=== PATIENT | female | born 1990 | race Caucasian/White ===

== ENCOUNTER 2017-12-05 22:41 | Emergency (ER) | payer MEDICAID ==
[~2017-12-05] VITALS: Ht 165.1 cm; Wt 93.2 kg
[~2017-12-05 22:41] MED LIST: ALBU8.5H8 INH; NORG1TAB56 PO
[2017-12-05] MEDS ORDERED: LIDOcaine 1% 30ml preserv. free vial IJ ONE (23:00)
[2017-12-05] MEDS ORDERED: TETanus/Pertussis (Acell)/Diphther VAC/PF (Tdap-Adult) 0.5ml syringe IMVAC ONE (23:00)
[2017-12-06 00:37] VITALS: BP 141/53
== END 2017-12-06 00:38 | disposition home or self-care (01) ==
LOC: ER 22:42
DX: S61.412A Laceration without foreign body of left hand, initial encounter (principal); F15.90 Other stimulant use, unspecified, uncomplicated; F11.90 Opioid use, unspecified, uncomplicated; Z91.030 Bee allergy status; Z59.0 Homelessness; Z56.0 Unemployment, unspecified; W25.XXXA Contact with sharp glass, initial encounter; Y93.89 Activity, other specified; Y92.89 Other specified places as the place of occurrence of the external cause; Y99.8 Other external cause status
CPT/HCPCS: 12001; 90471; 90715; 99283; A6449; J3490

== ENCOUNTER 2018-07-30 07:04 | Emergency (ER) | payer MEDICAID ==
[~2018-07-30] VITALS: Ht 170.2 cm; Wt 72.0 kg
[2018-07-30] MEDS ORDERED: OLANZapine **IM** 10 mg inj. IM ONE (07:40)
[2018-07-30] MEDS ORDERED: LORazepam 2 mg/ml vial IM ONE (07:40)
--- NOTE | 2018-07-30 07:56 | NUR ---
pt was seen and assessed by Dr Calix, pt was agitated and unsafe. poor decision making skills, delusional thoughts. Dr Calix ordered ativan and zyprexa IM, administered. will continue to monitor.
[2018-07-30 08:57] LABS: BASOPHILS % (AUTO) 0.4 % (0-1); EOSINOPHILS # (AUTO) 0.2 X10'3 (0-0.9); EOSINOPHILS % (AUTO) 1.4 % (0-6); HEMATOCRIT 41.1 % (35.0-45.0); HEMOGLOBIN 14.1 g/dl (12.0-16.0); LYMPHOCYTES # (AUTO) 2.7 X10'3 (1.1-4.8); LYMPHOCYTES % (AUTO) 23.4 % (21-51); MEAN CORPUSCULAR HEMOGLOBIN 31.8 PG (27.0-31.0); MEAN CORPUSCULAR HGB CONC 34.4 g/dL (33.0-36.5); MEAN CORPUSCULAR VOLUME 92.4 FL (78-98); MEAN PLATELET VOLUME 9.7 FL (7.4-10.4); MONOCYTES # (AUTO) 0.9 X10'3 (0-0.9); MONOCYTES % (AUTO) 7.8 % (2-12); NEUTROPHILS # (AUTO) 7.9 X10'3 (1.8-7.7); PLATELET COUNT 238 X10'3 (140-440); RED BLOOD COUNT 4.45 X10'6 (4.20-5.60); RED CELL DISTRIBUTION WIDTH 13.1 % (11.5-14.5); WHITE BLOOD COUNT 11.7 X10'3 (4.5-11.0)
--- NOTE | 2018-07-30 09:00 | NUR ---
Received pt from triage at 0845. Pt got right into bed and fell to sleep. Pt does not respond to attempt at assessment as pt is sedated and sleeping with out complaints.
[2018-07-30 09:07] LABS: ALANINE AMINOTRANSFERASE 29 U/L (12-78); ALBUMIN 3.7 G/DL (3.4-5.0); ALKALINE PHOSPHATASE 70 IU/L (46-116); ANION GAP 10 (8-16); ASPARTATE AMINO TRANSFERASE 18 U/L (10-37); BILIRUBIN,TOTAL 0.3 MG/DL (0.1-1.0); BLOOD UREA NITROGEN 8 MG/DL (7-18); BUN/CREATININE RATIO 11.8 (6.6-38.0); CALCIUM 9.3 MG/DL (8.5-10.1); CHLORIDE 103 MMOL/L (99-107); CREATININE 0.68 MG/DL (0.40-0.90); GLUCOSE 117 MG/DL (70-104); POTASSIUM 3.9 MMOL/L (3.5-5.1); SODIUM 142 MMOL/L (135-145); TOTAL CARBON DIOXIDE 28.8 MMOL/L (24-32); TOTAL PROTEIN 7.4 G/DL (6.4-8.2); eGFR > 90 ML/MIN
[2018-07-30 09:18] LABS: ETHANOL < 0.010 GM/DL (0.0-0.010)
--- NOTE | 2018-07-30 11:00 | NUR ---
MD over to assess pt. MD attempting to get pt out of bed to pee in a cup for urine tox screen. Pt sedated and did not awake. MD took sheets off pt and shook pt. Pt sedated and resisting, preferring to stay in the bed. MD pulled pt out of the bed with pt struggling to remain in the bed. Other staff assisting MD at this point able to help pt walk toward bathroom, but never made it and returned to the bed. Pt appears scared and became resistive to lying down in bed. At one point, pt stood on bed and security eventually able to talk pt into sitting on her bed which she did for awhile before lying back down.
--- NOTE | 2018-07-30 13:00 | NUR ---
Pt remains asleep in bed. Pt had refused v/s which were ordered q-1 hour to r/o sepsis. Pt agreeable at 1230. Will recheck at 1330.
--- NOTE | 2018-07-30 15:00 | NUR ---
Pt remains sleeping in bed without complaints. Pt compliant with q 1 hour vital signs and MD changed back to routine.
--- NOTE | 2018-07-30 17:00 | NUR ---
Pt continues to sleep in bed without complaints. Attempts to wake her to assess her have been unsuccessful.
--- NOTE | 2018-07-30 17:39 | NUR ---
Mom's Phone # Pts mom called unit to give info. Pt's father suicided in late 90's and [employer] in family. Pt can call Mom. Mom will call later. Mom's # [phone].
--- NOTE | 2018-07-30 20:02 | NUR ---
PT'S MOTHER CALLED TO GIVE UP DATED INFORMATION. PER MOTHER PT TALKED TO OFFICER BRI AND CASE NUMBER IS [id number]. MD DEAN AT BEDSIDE TO EVALUATE PT, SHE IS MEDICALLY CLEARED AT THIS TIME AND WE WILL COLLECT A UA.
--- NOTE | 2018-07-30 20:42 | NUR ---
PT irritated and yelling into pillow. This clinical writer begins speaking with patient, instructs pt to breath slowly to lower her voice. PT mood improved slightly. PT asks politely for some milk and lip balm. PT continues to slowly de-escalate.
--- NOTE | 2018-07-30 21:00 | NUR ---
TELE-PSYCH ON HOLD AT THIS TIME DUE TO PATIENT BEGIN AGGITATED. PT SLOWLY CALMING DOWN WITH HELP FROM SITTER.
[2018-07-30 21:56] LABS: BASOPHILS % (AUTO) 0.4 % (0-1); EOSINOPHILS # (AUTO) 0.3 X10'3 (0-0.9); EOSINOPHILS % (AUTO) 2.9 % (0-6); HEMATOCRIT 38.5 % (35.0-45.0); HEMOGLOBIN 13.1 g/dl (12.0-16.0); LYMPHOCYTES # (AUTO) 4.1 X10'3 (1.1-4.8); LYMPHOCYTES % (AUTO) 41.3 % (21-51); MEAN CORPUSCULAR HEMOGLOBIN 31.5 PG (27.0-31.0); MEAN CORPUSCULAR HGB CONC 33.9 g/dL (33.0-36.5); MEAN CORPUSCULAR VOLUME 92.7 FL (78-98); MEAN PLATELET VOLUME 9.2 FL (7.4-10.4); MONOCYTES # (AUTO) 0.8 X10'3 (0-0.9); MONOCYTES % (AUTO) 8.6 % (2-12); NEUTROPHILS # (AUTO) 4.6 X10'3 (1.8-7.7); NEUTROPHILS % (AUTO) 46.8 % (42-75); PLATELET COUNT 241 X10'3 (140-440); RED BLOOD COUNT 4.16 X10'6 (4.20-5.60); RED CELL DISTRIBUTION WIDTH 13.3 % (11.5-14.5); WHITE BLOOD COUNT 9.9 X10'3 (4.5-11.0)
[2018-07-30 22:37] LABS: URINE HCG NEGATIVE (NEG)
[2018-07-30 22:40] LABS: CLARITY,URINE CLOUDY (Clear); COLOR,URINE YELLOW (Yellow); GLUCOSE, URINE NEGATIVE (Neg); KETONES,URINE TRACE mg/dl (Neg); LEUKOCYTE ESTERASE ,URINE MODERATE (Neg); NITRITES, URINE POSITIVE (Neg); OCCULT BLOOD,URINE SMALL (Neg); PROTEIN,URINE TRACE mg/dl (Neg); UROBILINOGEN,URINE 0.2 E.U/dL (0.2-1.0)
[2018-07-30 22:45] LABS: UA COLLECTION TYPE NON-SPECIFIED
--- NOTE | 2018-07-30 22:45 | NUR ---
DR TOM TELE-PSYCH IS CONSULTING WITH THE PATIENT RIGHT NOW. URINE WAS OBTAINED AND SENT TO LAB.
[2018-07-30 22:46] LABS: WBC,URINE 30-50 /HPF (0-4)
[2018-07-30 22:47] LABS: BACTERIA,URINE 1+ /HPF (Neg); SQUAMOUS EPITHELIAL CELL,UR FEW /LPF (FEW); URINE AMPHETAMINE SCREEN POSITIVE (Neg); URINE BARBITUATE SCREEN NEGATIVE (Neg); URINE BENZODIAZEPINES SCREEN NEGATIVE (Neg); URINE CANNABINOID SCREEN POSITIVE (Neg); URINE COCAINE SCREEN NEGATIVE (Neg); URINE METHADONE SCREEN NEGATIVE (Neg); URINE OPIATE SCREEN NEGATIVE (Neg); URINE PHENCYCLIDINE SCREEN NEGATIVE (Neg); WBC CLUMPS,URINE FEW /HPF (NEGATIVE)
--- NOTE | 2018-07-30 22:47 | NUR ---
PT APPEARS TO HAVE UTI ON U/A RESULTS. DES AWARE AND WILL ORDER MEDICATIONS FOR HER.
[2018-07-30] MEDS: ziprasidone 20mg capsule PO SCH (23:10)
[2018-07-30] MEDS ORDERED: ZIPR20CA2 PO (23:53)
[2018-07-30] MEDS ORDERED: GEO20I IM (23:53)
--- NOTE | 2018-07-31 00:15 | NUR ---
Packet faxed to [facility].
[2018-07-31] MEDS ORDERED: ziprasidone 20mg capsule PO PRN (00:20)
--- NOTE | 2018-07-31 02:10 | NUR ---
PT RESTING ON R SIDE, RESPIRATIONS EVEN, UNLABORED.
[2018-07-31] MEDS ORDERED: albuterol 2.5 MG/3 ML nebule NEB PRN (04:00)
--- NOTE | 2018-07-31 06:42 | NUR ---
Pt sleeping at this time.
[2018-07-31] MEDS: sulfamethoxazole/trimethoprim DS (800/160mg) tablet PO SCH ×2 (07:58→20:00)
[2018-07-31] MEDS: ziprasidone 20mg capsule PO SCH ×3 (07:58→20:15)
[2018-07-31] MEDS ORDERED: cephalexin 500mg capsule PO SCH (08:00)
[2018-07-31] MEDS ORDERED: ziprasidone 20mg capsule PO SCH ×2 (08:00→22:55)
[2018-07-31] MEDS: NORGESTIMATE ETHINYL ESTRADIOL PO SCH (08:00)
--- NOTE | 2018-07-31 08:30 | NUR ---
Woke up to eat brteakfast.
--- NOTE | 2018-07-31 14:00 | NUR ---
Pt has woken up to eat lunch and to talk with [facility].
--- NOTE | 2018-07-31 19:29 | NUR ---
Recieved report from Purvi APARICIO. PT resting quietly at beginning of shift. PT received and ate dinner. Ana addressed.
--- NOTE | 2018-07-31 20:30 | NUR ---
Pt cooperative with medication administration. C/O painful Left great toe r/t in grown toenail. Tape used to pull skin back from nail to relieve pressure. Pt stated toe felt better after taping.
--- NOTE | 2018-07-31 21:30 | NUR ---
Pt resting comfortably on her right side. Respirations even and unlabored
--- NOTE | 2018-07-31 22:54 | NUR ---
Pt continues to rest quietly. Pt has pillow over her head.
--- NOTE | 2018-08-01 06:20 | NUR ---
Pt resting quietly.
[2018-08-01] MEDS: NORGESTIMATE ETHINYL ESTRADIOL PO SCH (08:00)
[2018-08-01] MEDS: sulfamethoxazole/trimethoprim DS (800/160mg) tablet PO SCH (08:23)
[2018-08-01] MEDS: ziprasidone 20mg capsule PO SCH (08:26)
--- NOTE | 2018-08-01 11:24 | NUR ---
[facility] called to get nurse to nurse on pt.
--- NOTE | 2018-08-01 13:16 | NUR ---
Talking on phone with mom. Pt much more talkative today.
[2018-08-01] MEDS ORDERED: diphenhydrAMINE 25mg capsule PO ONE (13:55)
[2018-08-01] MEDS ORDERED: nicotine 14mg patch - 24hr TD ONE (13:55)
--- NOTE | 2018-08-01 15:40 | NUR ---
Pt has been accepted at [facility] under the care of Dr Mercado. Waiting on [facility] to arrange transportation.
--- NOTE | 2018-08-01 15:41 | NUR ---
Spoke to Angelica at [facility]'s office. She will call when she has a pharmacy picking tech time.
[2018-08-01 16:39] VITALS: BP 110/54
[2018-08-01] MEDS ORDERED: lactobacillus rhamnosus 10,000 MMU CELLS/CAPSULE PO SCH (20:00)
== END 2018-08-01 16:41 ==
LOC: ER 07:05
DX: F29 Unspecified psychosis not due to a substance or known physiological condition (principal); F31.9 Bipolar disorder, unspecified; F11.90 Opioid use, unspecified, uncomplicated; F15.90 Other stimulant use, unspecified, uncomplicated; Z91.030 Bee allergy status; Z79.899 Other long term (current) drug therapy; Z56.0 Unemployment, unspecified; Z59.0 Homelessness
CPT/HCPCS: 36415; 80053; 80305; 80320; 81001; 81025; 84443; 85025; 87491; 87591; 96372; 99285; J2060; Q0163

== ENCOUNTER 2018-11-17 17:12 | Emergency (ER) | payer MEDICAID ==
[~2018-11-17 17:12] MED LIST changes: -ALBU8.5H8 INH; +BENZ1TAB7 PO; +HALO5TAB PO; +HYDR-3686 PO; +NICO-687 TOP; -NORG1TAB56 PO; +PRAZ2CAP2 PO
== END 2018-11-17 17:53 | disposition left against medical advice (07) ==
LOC: ER 17:13
DX: Z00.8 Encounter for other general examination (principal); Z53.21 Procedure and treatment not carried out due to patient leaving prior to being seen by health care provider; Z91.030 Bee allergy status; Z79.899 Other long term (current) drug therapy

== ENCOUNTER 2018-12-04 13:44 | Emergency (ER) | payer MEDICAID ==
[~2018-12-04] VITALS: Ht 167.6 cm; Wt 68.2 kg
[2018-12-04] MEDS ORDERED: LORazepam 2 mg/ml vial IM ONE (14:20)
[2018-12-04] MEDS ORDERED: haloperidol lactate 5mg/ml inj IM ONE (14:20)
[2018-12-04 14:58] LABS: BASOPHILS # (AUTO) 0.1 X10'3 (0-0.2); BASOPHILS % (AUTO) 0.6 % (0-1); EOSINOPHILS # (AUTO) 0.1 X10'3 (0-0.9); EOSINOPHILS % (AUTO) 0.7 % (0-6); HEMATOCRIT 39.3 % (35.0-45.0); HEMOGLOBIN 13.2 g/dl (12.0-16.0); LYMPHOCYTES # (AUTO) 3.3 X10'3 (1.1-4.8); LYMPHOCYTES % (AUTO) 26.7 % (21-51); MEAN CORPUSCULAR HGB CONC 33.7 g/dL (33.0-36.5); MEAN PLATELET VOLUME 8.7 FL (7.4-10.4); MONOCYTES # (AUTO) 0.8 X10'3 (0-0.9); MONOCYTES % (AUTO) 6.6 % (2-12); NEUTROPHILS % (AUTO) 65.4 % (42-75); PLATELET COUNT 326 X10'3 (140-440); RED BLOOD COUNT 4.14 X10'6 (4.20-5.60); RED CELL DISTRIBUTION WIDTH 13.2 % (11.5-14.5); WHITE BLOOD COUNT 12.3 X10'3 (4.5-11.0)
[2018-12-04 15:10] LABS: ALANINE AMINOTRANSFERASE 18 U/L (12-78); ALBUMIN 3.2 G/DL (3.4-5.0); ALBUMIN/GLOBULIN RATIO 0.7 (1.1-1.5); ALKALINE PHOSPHATASE 62 IU/L (46-116); ANION GAP 6 (8-16); ASPARTATE AMINO TRANSFERASE 10 U/L (10-37); BILIRUBIN,TOTAL 0.3 MG/DL (0.1-1.0); BLOOD UREA NITROGEN 7 MG/DL (7-18); BUN/CREATININE RATIO 11.5 (6.6-38.0); CALCIUM 9.1 MG/DL (8.5-10.1); CHLORIDE 103 MMOL/L (99-107); CREATININE 0.61 MG/DL (0.40-0.90); GLUCOSE 97 MG/DL (70-104); POTASSIUM 4.5 MMOL/L (3.5-5.1); SODIUM 137 MMOL/L (135-145); TOTAL CARBON DIOXIDE 27.6 MMOL/L (24-32); TOTAL PROTEIN 7.5 G/DL (6.4-8.2); eGFR > 90 ML/MIN
[2018-12-04 15:12] LABS: ETHANOL < 0.010 GM/DL (0.0-0.010)
[2018-12-04 15:17] LABS: URINE HCG NEGATIVE (NEG)
[2018-12-04 15:19] LABS: CLARITY,URINE CLEAR (Clear); COLOR,URINE YELLOW (Yellow); GLUCOSE, URINE NEGATIVE (Neg); KETONES,URINE NEGATIVE (Neg); LEUKOCYTE ESTERASE ,URINE NEGATIVE (Neg); NITRITES, URINE NEGATIVE (Neg); OCCULT BLOOD,URINE NEGATIVE (Neg); PROTEIN,URINE NEGATIVE (Neg); UA COLLECTION TYPE CLN CATCH MIDSTREAM; UROBILINOGEN,URINE 0.2 E.U/dL (0.2-1.0)
[2018-12-04 15:34] LABS: URINE AMPHETAMINE SCREEN NEGATIVE (Neg); URINE BARBITUATE SCREEN NEGATIVE (Neg); URINE BENZODIAZEPINES SCREEN POSITIVE (Neg); URINE CANNABINOID SCREEN POSITIVE (Neg); URINE COCAINE SCREEN NEGATIVE (Neg); URINE METHADONE SCREEN NEGATIVE (Neg); URINE OPIATE SCREEN NEGATIVE (Neg); URINE PHENCYCLIDINE SCREEN NEGATIVE (Neg)
[2018-12-04] MEDS ORDERED: ARIP10TA15 PO (16:16)
--- NOTE | 2018-12-04 16:20 | NUR ---
AMBULATORY TO ER #20 WITH FAMILY IN ATTENDANCE. PATIENT HAS BEEN LIVING ON THE STREETS AND TAKING DRUGS. FAMILY CONCERNED FOR HER WELL-BEING, SO THEY BROUGHT HER IN FOR EVALUATION. PATIENT EASILY AGITATED BUT COOPERATIVE WITH DIRECTIVES. MOM AND BROTHERS AT THE BEDSIDE. PATIENT USED RESTROOM AND NOW RESTING IN BED. VSS. NO DISTRESS NOTED AT THIS TIME.
--- NOTE | 2018-12-04 19:00 | NUR ---
Pt is asleep at change of shift. Her respirations are WNL. Quality Compliance Consultant tries to rouse her for a 1:1 assessment, but she just turns over in bed and falls back asleep. vital signs WNL.
--- NOTE | 2018-12-04 21:00 | NUR ---
Pt is resting in bed on her back, no signs or symptoms of distress observed.
--- NOTE | 2018-12-05 00:54 | NUR ---
Pt woke up and went to the restroom, she requested a sandwhich, a juice, and a milk which she was given. PT drank all of her juice and milk and ate 75% of her sandwhich. She was given a warm blanket and then laid back down.
--- NOTE | 2018-12-05 01:00 | NUR ---
Pt asleep left side. RR 14, even and unlabored. No apparent distress @ this time.
[2018-12-05] MEDS ORDERED: acetaminophen 325mg tablet PO ONE (01:50)
[2018-12-05] MEDS ORDERED: LORazepam 1 MG tablet PO ONE ×2 (01:50→08:25)
--- NOTE | 2018-12-05 02:01 | NUR ---
Pt woke up and began screaming, "my tooth fucking hurts!" "What the fuck man do something" Engine Assembly Supervisor approaches patient and tries talking with her regarding her pain but she just continued screaming. 1mg PO ativan and 650 mg tylenol PO given and a warm compress. Pt quited down and immediately upon taking the medication. She was given a warm blanket and she closed her eyes.
--- NOTE | 2018-12-05 04:00 | NUR ---
Pt asleep on her back, RR 14, no signs or symptoms of distress at this time.
--- NOTE | 2018-12-05 06:35 | NUR ---
RECEIVED REPORT FROM TRUMAN AND ASSUMED CARE, PATIENT IS SLEEPING, RESPIRATIONS SPONTANEOUS, EVEN AND UNLABORED, NO S/S OF DISTRESS, DISCOMFORT OR AGIATION AT THIS TIME, WILL CONTINUE TO MONITOR PATIENTS STATUS AND COMPLETE ASSESSMENTS WHEN PATIENT AWAKE.
--- NOTE | 2018-12-05 07:00 | NUR ---
PT STARTING TO AWAKE AND CALLING OUT THAT SHE WANTS A CIGARETTE, ASKED LETI APARICIO TO SPEAK WITH DR LORENZO ABOUT GETTING PRN TYLENOL AND ATIVAN, WELL A NICOTINE PATCH. PT IS NOT FULLY AWAKE, APPEARS TO BE SLEEPING BUT IS CALLING OUT RANDOMLY.
[2018-12-05] MEDS ORDERED: nicotine 14mg patch - 24hr TD SCH (08:00)
[2018-12-05] MEDS ORDERED: aripiprazole 5mg tablet PO SCH (08:00)
--- NOTE | 2018-12-05 08:03 | NUR ---
PT IS SITTING UP EATING BREAKFAST, WALKED TO BATHROOM AND RETURNED TO ROOM TO FINISH BREAKFAST, PT IS CALLING OUT "WHO BROUGHT ME HERE" REZA IS AT BEDSIDE TALKING WITH PATIENT NOW, "MY MOM IS FUCKING CRAZY" "I WANT MY BROTHER HERE" PT IS BECOMING AGITATED, STOPPED TALKING TO REZA AND WALKED TO BATHROOM TO FLUSH THE TOILET, THEN RETURNED TO BED TO CONTINUE TO EAT BREAKFAST
--- NOTE | 2018-12-05 08:11 | NUR ---
PAGED [facility] FOR MED RECOMMENDATION
[2018-12-05] MEDS: ibuprofen tablet 400 MG TABLET PO PRN ×2 (08:13→16:18)
[2018-12-05] MEDS ORDERED: LORazepam 2 mg/ml vial IM ONE ×2 (08:15→09:50)
[2018-12-05] MEDS ORDERED: haloperidol lactate 5mg/ml inj IM ONE (08:15)
[2018-12-05] MEDS ORDERED: haloperidol 5mg tablet PO ONE (08:30)
--- NOTE | 2018-12-05 08:42 | NUR ---
MEDICATED PT WITH PO ATIVAN 1 MG AND PO HALDOL 5 MG ONCE PER ORDERS, PT IS NOW CALM AND RESTING ON LEFT SIDE IMMEDIATELY AFTER BEING MEDICATED, PT HAD BEGUN TO CALM DOWN AFTER I INFORMED HER I WOULD GET HER MEDICATIONS TO HELP HER CALM DOWN WHEN I WAS MEDICATING PT WITH MORNING MEDICATIONS AND SHE WAS AGITATED AFTER SPEAKING WITH REZA [facility].
--- NOTE | 2018-12-05 08:48 | NUR ---
VIRIDIANA WITH [facility] CALLED TO STATES SHE RECEIVED PAGE, SHE STATES SHE HAS NOT SEEN LAMAR THE PA BUT WILL SEND HIM DOWN TO ED SOON SHE SEES HIM.
--- NOTE | 2018-12-05 09:40 | NUR ---
DR LORENZO INFORMED OF PT INCREASING AGITATION AND HAND PAIN, DR LORENZO TO COME AND EVALUATE PT NOW.
--- NOTE | 2018-12-05 09:41 | NUR ---
PT IS YELLING AND CLOSING CURTAIN, 3 SECURITY AT BEDSIDE
--- NOTE | 2018-12-05 09:48 | NUR ---
DR LORENZO AT PT BEDSIDE TO OBSERVE PT AGITATED BEHAVIOR, RECEIVED VERBAL ORDER 1 MG ATIVAN IM, AND 25 MG BENADRYL IM ONCE NOW. PT BROTHER JAYLA ON HIS WAY IN TO BE WITH PT.
[2018-12-05] MEDS ORDERED: diphenhydrAMINE 50 mg/ml inj IM ONE (09:50)
--- NOTE | 2018-12-05 10:50 | NUR ---
CALLED AND SPOKE WITH VIRIDIANA DIRECTOR [facility], SHE STATES LAMAR IS IN WEDNESDAY TREATMENT PLAN AND SHE WILL HAVE HIM COME EVALUATE PATIENT FOR MEDICATION RECOMMENDATIONS BEFORE HE STARTS SEEING THE PATIENTS IN [facility].
--- NOTE | 2018-12-05 11:34 | NUR ---
PT IS SLEEPING ON RIGHT SIDE, RESPIRATIONS SPONTANEOUS, EVEN AND UNLABORED, NO S/S OF DISTRESS, DISCOMFORT OR AGITATION AT THIS TIME, PT BROTHERS STACIE AND JAYLA HERE TO PROVIDE PT HISTORY, WILL CALL THEM BACK TO BE HERE IF NEEDED WHEN LAMAR FROM [facility] EVALUATES PT FOR MEDICATION RECOMMENDATION AND EVAL ADMISSION TO [facility], WILL ALSO HAVE DR LORENZO EVALUATE PT TOOTH ABSCESS AND FINGER PAIN WHEN PT IS AWAKE.
--- NOTE | 2018-12-05 11:41 | NUR ---
AVRIL CALLED AND IS AWARE OF PT WAKING EARLIER WITH EXTREME AGITATION, INFORMED CALLER I AM HAVING [facility] COME TO EVALUATE PT FOR MEDICATION RECOMMENDATION AND ADMISSION, SHE WILL NOT PRESENT CASE NOW SHE BELEIVES IT WILL BE DENIED DUE TO PT WAKING WITH EXTREME AGIATION, SHE WILL CALL BACK APPROX 1245 TO RE-EVAL PT AFTER SHE IS AWAKE AGAIN AND HAS BEEN EVALUATED BY LAMAR [facility] RITA
--- NOTE | 2018-12-05 12:00 | NUR ---
LAMAR SALINAS AT BEDSIDE TO REVIEW PT CHART AND DISCUSS PT CASE WITH RN, LAMAR WILL SPEAK WITH BROTHERS JAYLA AND STACIE WHO RAN SOME ERRANDS AND ARE NOW BACK IN ED. LAMAR SALINAS WILL PLACE SOME ROUTINE MEDICATIONS ORDERS BASED ON PT HX AND REVIEW WITH RN, PROVIDER ALSO MADE AWARE OF PT FINGER PAIN AND TOOTH ABSCESS WITH JAW PAIN. LAMAR ALSO MADE AWARE OF [facility] TO CALL BACK AT 1245 FOR PT STATUS WHEN PT WAKES UP AGAIN THEY ARE CONSIDERING PRESENTING CASE, POSSIBLE ACCEPTANCE DEPENDING ON [facility] DISCHARGES PT HAS HAD TWO STAYS AT [facility] WITHOUT STABILIZATION
--- NOTE | 2018-12-05 12:45 | NUR ---
Rancho turner in ED - 12/05/18 at 1302 by FREDERICK PATIENT TRANSFERRED TO [facility] #[id number]. REPORT TO MARKUS MCCANN AND MARKUS SHANKS.
--- NOTE | 2018-12-05 13:47 | NUR ---
CALLED [facility] INFORMED NO ORDERS FROM LAMAR BENAVIDES WHO WAS IN ED OVERFLOW TO DISCUSS PT CASE WITH DIMITRIS APARICIO, REZA [facility], AND PT FAMILY MEMBERS JAYLA AND STACIE CRISTINA 2 HOURS AGO, INFORMED IZABEL WITH [facility] PT IS NOW AWAKE AND ALSO WANTED TO VERIFY IF HE WANTS TO SPEAK WITH PT SHE WAS SLEEPING WHEN HE WAS IN ED OVERFLOW PREVIOUSLY
--- NOTE | 2018-12-05 14:24 | NUR ---
CALLED [facility] AGAIN TO HAVE MEDICATION ORDER UPDATED BY LAMAR BENAVIDES AND ALSO DETERMINE IF PROVIDER WOULD LIKE TO ASSESS PT NOW THAT SHE IS AWAKE.
[2018-12-05] MEDS ORDERED: LORazepam 1 MG tablet PO PRN (14:30)
--- NOTE | 2018-12-05 16:09 | NUR ---
[facility] CALLED INFORMED PT LAST MEDS [phone], WOKE UP THIS AFTERNOON WITH NO AGITATION OR INCEDENT UPON WAKING, PT IS LYING ON LEFT SIDE SLEEPING, RESPIRATIONS SPONTANEOUS, EVEN AND UNLABORED, NO S/S OF DISTRESS, DISCOMFORT OR AGITATION
[2018-12-05] MEDS ORDERED: acetaminophen 325mg tablet PO PRN (16:15)
--- NOTE | 2018-12-05 16:22 | NUR ---
PT MEDICATED WITH IBUPROFEN FOR PAIN AND ATIVAN PT STARTING TO GET AGITATED UPON WAKING AGAIN, DR ROBERTS INFORMED OF PT POSSIBLE TOOTH ABSCESS AND LEFT LITTLE FINGER PAIN X 1 WEEK.
--- NOTE | 2018-12-05 16:23 | NUR ---
DR SCHMITZ AT BEDSIDE FOR EVALUATION OF PT FINGER AND TOOTH, ORDERS TO FOLLOW
--- NOTE | 2018-12-05 16:30 | NUR ---
PT IS SITTING UP IN BED EATING MEAL TRAY THAT WAS DELIVERED JUST NOW, PT WAS SLEEPING WHEN LUNCH TRAY WAS DELIVERED EARLIER.
[2018-12-05] MEDS ORDERED: penicillin V potassium 500mg tablet PO SCH (17:00)
--- NOTE | 2018-12-05 17:16 | NUR ---
PT RECEIVED XRAY OF LEFT HANDPER ORDERS, MEDICATED PT WITH TYLENOL AND PCN PER ORDERS, PT IS CALM AND COOPERATIVE DURING INTERACTION
--- NOTE | 2018-12-05 19:00 | NUR ---
This nurse recieved report on patient and was doing rounds when [facility] Kristan arrived at 1850 and informed staff that Elvia was to be transfered to them. [facility] was not informed by [facility] prior to arrival. Discharge orders were completed, blue slips explained to patient, pt signed. This nurse called and gave a nurse to nurse report to MARKUS Roberto at [facility]. Pt changed into her own jeans and shirt before leaving, shoes went with long haul truck driver. Pt tolerated the situation well, when she was informed she was going to [facility] she nodded, sat up, and got changed without issue. Vitals WNL.
[2018-12-05 20:38] VITALS: BP 101/47
[2018-12-05] MEDS ORDERED: haloperidol 5mg tablet PO SCH (21:00)
== END 2018-12-05 19:15 ==
LOC: ER 13:45
DX: F41.9 Anxiety disorder, unspecified (principal); K02.9 Dental caries, unspecified; F31.9 Bipolar disorder, unspecified; F20.9 Schizophrenia, unspecified; F15.90 Other stimulant use, unspecified, uncomplicated; F11.90 Opioid use, unspecified, uncomplicated; Z91.030 Bee allergy status; Z79.899 Other long term (current) drug therapy; Z59.0 Homelessness; Z56.0 Unemployment, unspecified
CPT/HCPCS: 36415; 73130; 80053; 80305; 80320; 81003; 81025; 85025; 96372; 99285; J1200; J1630; J2060

== ENCOUNTER 2019-01-05 17:39 | Emergency (ER) | payer MEDICAID ==
[~2019-01-05] VITALS: Ht 160 cm; Wt 66.0 kg
[~2019-01-05 17:39] MED LIST changes: +ARIP10TA15 PO; -BENZ1TAB7 PO; -HALO5TAB PO; -HYDR-3686 PO; -NICO-687 TOP; -PRAZ2CAP2 PO
[2019-01-05] MEDS ORDERED: LORazepam 1 MG tablet PO ONE (19:10)
[2019-01-05 19:20] LABS: URINE HCG NEGATIVE (NEG)
[2019-01-05 19:25] LABS: URINE AMPHETAMINE SCREEN NEGATIVE (Neg); URINE BARBITUATE SCREEN NEGATIVE (Neg); URINE BENZODIAZEPINES SCREEN NEGATIVE (Neg); URINE CANNABINOID SCREEN POSITIVE (Neg); URINE COCAINE SCREEN NEGATIVE (Neg); URINE METHADONE SCREEN NEGATIVE (Neg); URINE OPIATE SCREEN NEGATIVE (Neg); URINE PHENCYCLIDINE SCREEN NEGATIVE (Neg)
[2019-01-05 19:31] LABS: CLARITY,URINE CLEAR (Clear); COLOR,URINE YELLOW (Yellow); GLUCOSE, URINE NEGATIVE (Neg); KETONES,URINE NEGATIVE (Neg); LEUKOCYTE ESTERASE ,URINE NEGATIVE (Neg); NITRITES, URINE NEGATIVE (Neg); OCCULT BLOOD,URINE NEGATIVE (Neg); PROTEIN,URINE NEGATIVE (Neg); UROBILINOGEN,URINE 0.2 E.U/dL (0.2-1.0)
[2019-01-05 19:37] LABS: UA COLLECTION TYPE CLN CATCH MIDSTREAM
[2019-01-05 20:04] LABS: BASOPHILS # (AUTO) 0.1 X10'3 (0-0.2); BASOPHILS % (AUTO) 0.7 % (0-1); EOSINOPHILS # (AUTO) 0.3 X10'3 (0-0.9); EOSINOPHILS % (AUTO) 2.9 % (0-6); HEMATOCRIT 38.8 % (35.0-45.0); HEMOGLOBIN 13.1 g/dl (12.0-16.0); LYMPHOCYTES # (AUTO) 3.3 X10'3 (1.1-4.8); LYMPHOCYTES % (AUTO) 31.5 % (21-51); MEAN CORPUSCULAR HEMOGLOBIN 32.7 PG (27.0-31.0); MEAN CORPUSCULAR HGB CONC 33.9 g/dL (33.0-36.5); MEAN CORPUSCULAR VOLUME 96.6 FL (78-98); MEAN PLATELET VOLUME 8.7 FL (7.4-10.4); MONOCYTES # (AUTO) 0.8 X10'3 (0-0.9); MONOCYTES % (AUTO) 7.3 % (2-12); NEUTROPHILS # (AUTO) 6.1 X10'3 (1.8-7.7); NEUTROPHILS % (AUTO) 57.6 % (42-75); PLATELET COUNT 310 X10'3 (140-440); RED BLOOD COUNT 4.01 X10'6 (4.20-5.60); RED CELL DISTRIBUTION WIDTH 14.1 % (11.5-14.5); WHITE BLOOD COUNT 10.5 X10'3 (4.5-11.0)
[2019-01-05 20:29] LABS: ALANINE AMINOTRANSFERASE 25 U/L (12-78); ALBUMIN 3.3 G/DL (3.4-5.0); ALBUMIN/GLOBULIN RATIO 0.9 (1.1-1.5); ALKALINE PHOSPHATASE 59 IU/L (46-116); ANION GAP 5 (8-16); ASPARTATE AMINO TRANSFERASE 8 U/L (10-37); BILIRUBIN,TOTAL 0.3 MG/DL (0.1-1.0); BLOOD UREA NITROGEN 14 MG/DL (7-18); BUN/CREATININE RATIO 25.5 (6.6-38.0); CALCIUM 8.4 MG/DL (8.5-10.1); CHLORIDE 104 MMOL/L (99-107); CREATININE 0.55 MG/DL (0.40-0.90); GLUCOSE 107 MG/DL (70-104); POTASSIUM 3.8 MMOL/L (3.5-5.1); SODIUM 137 MMOL/L (135-145); eGFR > 90 ML/MIN
[2019-01-05 20:59] LABS: ETHANOL < 0.010 GM/DL (0.0-0.010)
--- NOTE | 2019-01-06 08:02 | NUR ---
PACKET HAS BEEN FAXED TO [facility]
[2019-01-06] MEDS ORDERED: ibuprofen tablet 400 MG TABLET PO ONE ×2 (08:15→13:35)
--- NOTE | 2019-01-06 08:23 | NUR ---
PT'S TRAY IS HERE
--- NOTE | 2019-01-06 12:30 | NUR ---
spoke to [facility] Padd for report.
--- NOTE | 2019-01-06 13:29 | NUR ---
Pt reports invega shot last 12/05/18, her first shot, Bettie Jennings looking for records to confirm, Dr. Salcedo notified med rec not complete.
[2019-01-06] MEDS ORDERED: nicotine 14mg patch - 24hr TD ONE (13:55)
[2019-01-07] MEDS ORDERED: ibuprofen tablet 400 MG TABLET PO ONE (05:10)
--- NOTE | 2019-01-07 05:15 | NUR ---
pt requested motrin for dental pain. verbal order from dr mccloud for 400 mg ibuprofen. meds given to pt.
--- NOTE | 2019-01-07 07:00 | NUR ---
Pt is lying in bed, appears to be sleeping.
[2019-01-07] MEDS ORDERED: NO HOME MEDS (07:30)
--- NOTE | 2019-01-07 09:00 | NUR ---
Pt up to the bathroom.
--- NOTE | 2019-01-07 09:51 | NUR ---
Pt had emesis X 1.
--- NOTE | 2019-01-07 10:53 | NUR ---
Pt had heard retching, pt c/o nausea, reported emesis X 2. Pt states she woke up feeling nauseous yesterday morning. Asked PCT to request gingerale from the kitchen. Will ask MD for antinausea med and to come and assess left lower molar. Pt continues to c/o left lower back molar dental and gum pain as well as left jaw pain, left neck pain and left back of the head pain. Pt state she had left back tooth pulled at the [place] on Wednesday. Able to visualize portion of the tooth still remaining in jaw. Pt is afebrile and WBC was WNL.
[2019-01-07] MEDS ORDERED: ondansetron 4mg rapidly disintigrating tab PO ONE (11:05)
[2019-01-07] MEDS ORDERED: risperiDONE 0.5mg tablet PO ONE (11:15)
[2019-01-07] MEDS: penicillin V potassium 500mg tablet PO SCH ×4 (11:33→20:49)
--- NOTE | 2019-01-07 11:38 | NUR ---
Obtained orders for Risperdal 0.5 mg PO BID, Zofran 4 mg ODT once, and PCN V 500 mg PO BID. Gave Zofran before other PO meds, 1st dose PCN given.
[2019-01-07] MEDS ORDERED: nicotine 14mg patch - 24hr TD SCH (12:15)
[2019-01-07] MEDS ORDERED: penicillin V potassium 500mg tablet PO SCH (13:00)
--- NOTE | 2019-01-07 13:23 | NUR ---
Earl from [facility] Sudarshan Briseno called inquiring about the pt. He will present to their MD.
--- NOTE | 2019-01-07 13:54 | NUR ---
Christina from [employer] office called. Pt has been accepted by Dr Riggins at [facility]. occupational therapy aide time will be 2044 this evening.
--- NOTE | 2019-01-07 14:17 | NUR ---
Pt was on the phone with her mother, became loud and argumentative, appeared anxious, had been on the phone for roughly half an hour. Requested that pt end her phone call, pt cooperative, ended call.
--- NOTE | 2019-01-07 16:15 | NUR ---
Pt called her mom again, kept her phone call to under 15 minutes and was not loud or agitated.
--- NOTE | 2019-01-07 17:04 | NUR ---
Patient resting in bed. no s/s of distress or pain. Will continue to monitor.
[2019-01-07 17:12] VITALS: BP 99/67
--- NOTE | 2019-01-07 18:35 | NUR ---
Patient sitting up in bed and speaking on the phone. No distress observed. Continue to monitor.
--- NOTE | 2019-01-07 19:59 | NUR ---
RN spoke to patient 1:1. Patient states she doesn't know why her brother brought her here. Patient denies SI/HI. Denies A/V hallucinations. Patient is soft spoken and states she is going to call her brother to finds out why she is here. Brother did not answer the phone. 5150 states patient's family states she has been agitated and persecuted by everyone. Family believes she is unsafte. Continue to monitor.
[2019-01-07] MEDS ORDERED: risperiDONE 0.5mg tablet PO SCH (20:00)
[2019-01-07] MEDS ORDERED: ibuprofen 200mg tablet PO ONE (20:35)
== END 2019-01-07 20:55 ==
LOC: ER 17:39
DX: F20.9 Schizophrenia, unspecified (principal); F31.9 Bipolar disorder, unspecified; F15.90 Other stimulant use, unspecified, uncomplicated; F11.90 Opioid use, unspecified, uncomplicated; F17.210 Nicotine dependence, cigarettes, uncomplicated; Z59.0 Homelessness; Z56.0 Unemployment, unspecified; Z91.030 Bee allergy status; Z79.899 Other long term (current) drug therapy
CPT/HCPCS: 36415; 80053; 80305; 80320; 81003; 81025; 84443; 85025; 99285; J2405

== ENCOUNTER 2019-02-14 01:58 | Emergency (ER) | payer MEDICAID ==
[~2019-02-14 01:58] MED LIST changes: -ARIP10TA15 PO; +NO HOME MEDS
--- NOTE | 2019-02-14 02:09 | NUR ---
Pt in lobby with mother and 2 other family members. Called for Triage and pt found in lobby corner telling family she did not want to be here. Pt then trying to leave the lobby and family attempting to restrain her. Security called and adtl staff in lobby. Family told by charge account authorizer, Lawson, that she is allowed to leave and they need to call police for further assistance. Pt then ran out of the lobby. Family reports that they did call police earlier and they did not come.
== END 2019-02-14 02:14 | disposition left against medical advice (07) ==
LOC: ER 01:58
DX: Z00.8 Encounter for other general examination (principal); Z53.21 Procedure and treatment not carried out due to patient leaving prior to being seen by health care provider

== ENCOUNTER 2019-03-17 12:19 | Inpatient (IN) | payer MEDICAID ==
[~2019-03-17] VITALS: Ht 160 cm; Wt 68.2 kg
[2019-03-17] MEDS ORDERED: ibuprofen tablet 400 MG TABLET PO ONE (14:05)
[2019-03-17] MEDS ORDERED: tetanus & diphtheria toxoid (Td) vaccine 0.5ml IMVAC ONE (14:15)
[2019-03-17] MEDS ORDERED: TETanus/Pertussis (Acell)/Diphther VAC/PF (Tdap-Adult) 0.5ml syringe IMVAC ONE (14:35)
[2019-03-17] MEDS ORDERED: SULF1TAB49 PO (14:54)
[2019-03-17] MEDS ORDERED: CEPH-572 PO (14:54)
[2019-03-17] MEDS ORDERED: IBUP-1984 PO (14:54)
[2019-03-17] MEDS ORDERED: normal saline 1000ML IV soln IVB ONE ×2 (15:05→16:10)
[2019-03-17] MEDS ORDERED: CefTRIAXone/D5W-Rocephin 1gm 50 ML IV ONE (15:05)
[2019-03-17 15:54] LABS: BASOPHILS # (AUTO) 0.1 X10'3 (0-0.2); EOSINOPHILS # (AUTO) 0.1 X10'3 (0-0.9); LYMPHOCYTES # (AUTO) 2.3 X10'3 (1.1-4.8)
[2019-03-17 15:55] LABS: BASOPHILS % (AUTO) 0.2 % (0-1); EOSINOPHILS % (AUTO) 0.3 % (0-6); HEMATOCRIT 44.3 % (35.0-45.0); HEMOGLOBIN 15.1 g/dl (12.0-16.0); MEAN CORPUSCULAR HEMOGLOBIN 31.9 PG (27.0-31.0); MEAN CORPUSCULAR VOLUME 93.7 FL (78-98); MEAN PLATELET VOLUME 9.2 FL (7.4-10.4); MONOCYTES # (AUTO) 2.1 X10'3 (0-0.9); MONOCYTES % (AUTO) 7.1 % (2-12); NEUTROPHILS # (AUTO) 24.9 X10'3 (1.8-7.7); NEUTROPHILS % (AUTO) 84.4 % (42-75); PLATELET COUNT 275 X10'3 (140-440); RED BLOOD COUNT 4.73 X10'6 (4.20-5.60); RED CELL DISTRIBUTION WIDTH 12.2 % (11.5-14.5)
[2019-03-17 15:58] LABS: WHITE BLOOD COUNT 29.5 X10'3 (4.5-11.0)
[2019-03-17 16:05] LABS: ALANINE AMINOTRANSFERASE 13 U/L (12-78); ALBUMIN 3.1 G/DL (3.4-5.0); ALBUMIN/GLOBULIN RATIO 0.7 (1.1-1.5); ALKALINE PHOSPHATASE 68 IU/L (46-116); ANION GAP 9 (8-16); ASPARTATE AMINO TRANSFERASE 9 U/L (10-37); BILIRUBIN,TOTAL 0.7 MG/DL (0.1-1.0); BLOOD UREA NITROGEN 10 MG/DL (7-18); BUN/CREATININE RATIO 14.7 (6.6-38.0); CHLORIDE 102 MMOL/L (99-107); CREATININE 0.68 MG/DL (0.40-0.90); GLUCOSE 100 MG/DL (70-104); POTASSIUM 4.2 MMOL/L (3.5-5.1); SODIUM 137 MMOL/L (135-145); TOTAL CARBON DIOXIDE 25.8 MMOL/L (24-32); TOTAL PROTEIN 7.8 G/DL (6.4-8.2); eGFR > 90 ML/MIN
[2019-03-17 16:23] LABS: PLATELET ESTIMATE NORMAL; TOTAL CELLS COUNTED 100; TOXIC VACUOLATION 1+
[2019-03-17 16:27] LABS: URINE HCG NEGATIVE (NEG)
[2019-03-17] MEDS ORDERED: ondansetron/PF 4mg/2ml inj IV PRN (16:30)
[2019-03-17] MEDS ORDERED: acetaminophen 325mg tablet PO PRN (16:30)
[2019-03-17] MEDS ORDERED: morphine 2 MG/ML inj. syringe IV PRN ×2 (16:30)
[2019-03-17] MEDS ORDERED: magnesium hydroxide 30ml (MOM) UD suspension PO PRN (16:30)
[2019-03-17] MEDS ORDERED: mag hydrox/Alum hydrox/simeth 30ml oral suspension PO PRN (16:30)
[2019-03-17] MEDS ORDERED: HYDROcodone/acetaminophen 5mg/325mg tablet PO PRN (16:30)
[2019-03-17 16:41] LABS: URINE AMPHETAMINE SCREEN POSITIVE (Neg); URINE BARBITUATE SCREEN NEGATIVE (Neg); URINE BENZODIAZEPINES SCREEN NEGATIVE (Neg); URINE CANNABINOID SCREEN POSITIVE (Neg); URINE COCAINE SCREEN NEGATIVE (Neg); URINE METHADONE SCREEN NEGATIVE (Neg); URINE OPIATE SCREEN NEGATIVE (Neg); URINE PHENCYCLIDINE SCREEN NEGATIVE (Neg)
[2019-03-17] MEDS ORDERED: ARIP10TA9 PO (17:25)
[2019-03-17] MEDS ORDERED: HALO5TAB PO (18:00)
[2019-03-17] MEDS: dextrose 5%-1/2 normal saline 1,000 ML IV SCH (18:51)
[2019-03-17] MEDS: ceFAZolin 1GM/D5W- ADD-VANTAGE 50 ML IV SCH (18:51)
[2019-03-17 20:35] VITALS: BP 107/72
[2019-03-18] VITALS: BP 104/51
[2019-03-18] MEDS: ceFAZolin 1GM/D5W- ADD-VANTAGE 50 ML IV SCH ×3 (00:51→17:13)
[2019-03-18] MEDS: dextrose 5%-1/2 normal saline 1,000 ML IV SCH ×3 (02:26→17:14)
[2019-03-18] MEDS: HYDROcodone/acetaminophen 10/325mg tab PO PRN ×3 (02:53→19:56)
--- NOTE | 2019-03-18 06:20 | NUR ---
Patient in room [facility] 356. I have received report from MARKUS Recinos and had the opportunity to ask questions and assume patient care.
[2019-03-18 06:25] LABS: BASOPHILS # (AUTO) 0.1 X10'3 (0-0.2); BASOPHILS % (AUTO) 0.3 % (0-1); EOSINOPHILS # (AUTO) 0.2 X10'3 (0-0.9); EOSINOPHILS % (AUTO) 0.7 % (0-6); HEMATOCRIT 34.7 % (35.0-45.0); HEMOGLOBIN 11.8 g/dl (12.0-16.0); LYMPHOCYTES # (AUTO) 2.2 X10'3 (1.1-4.8); LYMPHOCYTES % (AUTO) 9.2 % (21-51); MEAN CORPUSCULAR HEMOGLOBIN 31.8 PG (27.0-31.0); MEAN CORPUSCULAR VOLUME 93.6 FL (78-98); MEAN PLATELET VOLUME 9.8 FL (7.4-10.4); MONOCYTES # (AUTO) 1.7 X10'3 (0-0.9); NEUTROPHILS % (AUTO) 82.8 % (42-75); PLATELET COUNT 208 X10'3 (140-440); RED CELL DISTRIBUTION WIDTH 12.3 % (11.5-14.5); WHITE BLOOD COUNT 24.2 X10'3 (4.5-11.0)
[2019-03-18 06:55] LABS: ANION GAP 9 (8-16); BLOOD UREA NITROGEN 5 MG/DL (7-18); BUN/CREATININE RATIO 9.8 (6.6-38.0); CALCIUM 7.2 MG/DL (8.5-10.1); CHLORIDE 109 MMOL/L (99-107); CREATININE 0.51 MG/DL (0.40-0.90); GLUCOSE 129 MG/DL (70-104); POTASSIUM 3.5 MMOL/L (3.5-5.1); SODIUM 140 MMOL/L (135-145); eGFR > 90 ML/MIN
--- NOTE | 2019-03-18 07:45 | NUR ---
Patient refused physical assessment wanting to sleep, will reattempt later in morning. Patient seems to be in no apparent distress
[2019-03-18 08:00] VITALS: BP 92/47
[2019-03-18] MEDS: enoxaparin 40mg/0.4ml syringe SUBCUT SCH ×2 (08:00→11:14)
[2019-03-18 11:00] VITALS: BP 111/69
[2019-03-18 18:15] VITALS: BP 102/53
--- NOTE | 2019-03-18 18:25 | NUR ---
Problems reprioritized. Patient report given, questions answered & plan of care reviewed with Grisel RN & Colleen RN.
--- NOTE | 2019-03-18 18:40 | NUR ---
Patient in room [facility]OE[facility] 356. I have received report from Ana Luisa RN and Jessica RN and had the opportunity to ask questions and assume patient care.
[2019-03-18] MEDS: haloperidol 5mg tablet PO SCH (19:55)
[2019-03-18] MEDS: lactobacillus rhamnosus 10,000 MMU CELLS/CAPSULE PO SCH (19:56)
[2019-03-18] MEDS: ARIPIPRAZOLE 10 MG TABLET PO SCH (21:29)
[2019-03-19] MEDS: ceFAZolin 1GM/D5W- ADD-VANTAGE 50 ML IV SCH ×4 (00:14→23:20)
[2019-03-19] MEDS: HYDROcodone/acetaminophen 10/325mg tab PO PRN ×3 (01:08→13:50)
[2019-03-19 01:35] VITALS: BP 102/40
[2019-03-19] MEDS: dextrose 5%-1/2 normal saline 1,000 ML IV SCH (03:39)
--- NOTE | 2019-03-19 06:40 | NUR ---
Problems reprioritized. Patient report given, questions answered & plan of care reviewed with MARKUS Almodovar.
--- NOTE | 2019-03-19 06:43 | NUR ---
Patient in room PHOEBE 356B. I have received report from Grisel APARICIO and Colleen RN and had the opportunity to ask questions and assume patient care.
[2019-03-19 06:54] LABS: BASOPHILS # (AUTO) 0.1 X10'3 (0-0.2); BASOPHILS % (AUTO) 0.5 % (0-1); EOSINOPHILS # (AUTO) 0.4 X10'3 (0-0.9); EOSINOPHILS % (AUTO) 2.4 % (0-6); HEMATOCRIT 32.1 % (35.0-45.0); HEMOGLOBIN 11.1 g/dl (12.0-16.0); LYMPHOCYTES # (AUTO) 3.9 X10'3 (1.1-4.8); LYMPHOCYTES % (AUTO) 24.4 % (21-51); MEAN CORPUSCULAR HEMOGLOBIN 32.1 PG (27.0-31.0); MEAN CORPUSCULAR HGB CONC 34.5 g/dL (33.0-36.5); MEAN CORPUSCULAR VOLUME 93.1 FL (78-98); MEAN PLATELET VOLUME 9.3 FL (7.4-10.4); MONOCYTES # (AUTO) 1.3 X10'3 (0-0.9); NEUTROPHILS # (AUTO) 10.3 X10'3 (1.8-7.7); NEUTROPHILS % (AUTO) 64.7 % (42-75); PLATELET COUNT 261 X10'3 (140-440); RED BLOOD COUNT 3.44 X10'6 (4.20-5.60); RED CELL DISTRIBUTION WIDTH 12.5 % (11.5-14.5); WHITE BLOOD COUNT 15.9 X10'3 (4.5-11.0)
[2019-03-19 07:02] LABS: ALBUMIN 1.9 G/DL (3.4-5.0); ANION GAP 8 (8-16); CALCIUM 8.1 MG/DL (8.5-10.1); CHLORIDE 107 MMOL/L (99-107); GLUCOSE 103 MG/DL (70-104); POTASSIUM 3.5 MMOL/L (3.5-5.1); SODIUM 141 MMOL/L (135-145); TOTAL CARBON DIOXIDE 25.7 MMOL/L (24-32)
[2019-03-19 07:10] VITALS: BP 97/50
[2019-03-19 07:24] LABS: BLOOD UREA NITROGEN 2 MG/DL (7-18); BUN/CREATININE RATIO 3.8 (6.6-38.0); CREATININE 0.52 MG/DL (0.40-0.90); eGFR > 90 ML/MIN
[2019-03-19] MEDS: enoxaparin 40mg/0.4ml syringe SUBCUT SCH (08:00)
[2019-03-19] MEDS: haloperidol 5mg tablet PO SCH ×2 (08:50→20:30)
[2019-03-19] MEDS: lactobacillus rhamnosus 10,000 MMU CELLS/CAPSULE PO SCH ×2 (08:50→20:30)
[2019-03-19] MEDS: normal saline 500ml IV soln 500 ML IV PRN ×2 (09:30→16:09)
[2019-03-19 11:38] VITALS: BP 89/54
[2019-03-19 18:00] VITALS: BP 116/80
--- NOTE | 2019-03-19 18:16 | NUR ---
Problems reprioritized. Patient report given, questions answered & plan of care reviewed with Cici APARICIO.
--- NOTE | 2019-03-19 19:11 | NUR ---
Patient in room [facility]OE[facility] 356. I have received report from MARKUS Almodovar and had the opportunity to ask questions and assume patient care. Addendum: 03/19/19 at 1912 by Cici Goodwin RN Amended: Links added.
[2019-03-19] MEDS: ARIPIPRAZOLE 10 MG TABLET PO SCH (20:31)
[2019-03-19 23:53] VITALS: BP 95/51
--- NOTE | 2019-03-20 06:13 | NUR ---
Problems reprioritized. Patient report given, questions answered & plan of care reviewed with MARKUS Almodovar. Addendum: 03/20/19 at 0613 by Cici Goodwin RN Amended: Links added.
[2019-03-20 06:30] LABS: BASOPHILS # (AUTO) 0.2 X10'3 (0-0.2); BASOPHILS % (AUTO) 1.2 % (0-1); EOSINOPHILS # (AUTO) 0.3 X10'3 (0-0.9); EOSINOPHILS % (AUTO) 2.4 % (0-6); HEMATOCRIT 34.3 % (35.0-45.0); HEMOGLOBIN 11.7 g/dl (12.0-16.0); LYMPHOCYTES # (AUTO) 4.5 X10'3 (1.1-4.8); LYMPHOCYTES % (AUTO) 32.9 % (21-51); MEAN CORPUSCULAR HEMOGLOBIN 31.8 PG (27.0-31.0); MEAN CORPUSCULAR HGB CONC 33.9 g/dL (33.0-36.5); MEAN CORPUSCULAR VOLUME 93.6 FL (78-98); MEAN PLATELET VOLUME 8.9 FL (7.4-10.4); MONOCYTES # (AUTO) 1.2 X10'3 (0-0.9); MONOCYTES % (AUTO) 8.8 % (2-12); NEUTROPHILS # (AUTO) 7.5 X10'3 (1.8-7.7); NEUTROPHILS % (AUTO) 54.7 % (42-75); PLATELET COUNT 308 X10'3 (140-440); RED BLOOD COUNT 3.67 X10'6 (4.20-5.60); RED CELL DISTRIBUTION WIDTH 12.4 % (11.5-14.5); WHITE BLOOD COUNT 13.7 X10'3 (4.5-11.0)
[2019-03-20 06:49] LABS: ALBUMIN 1.8 G/DL (3.4-5.0); ANION GAP 9 (8-16); BLOOD UREA NITROGEN 3 MG/DL (7-18); BUN/CREATININE RATIO 5.9 (6.6-38.0); CALCIUM 7.9 MG/DL (8.5-10.1); CHLORIDE 110 MMOL/L (99-107); CREATININE 0.51 MG/DL (0.40-0.90); GLUCOSE 103 MG/DL (70-104); POTASSIUM 3.9 MMOL/L (3.5-5.1); SODIUM 146 MMOL/L (135-145); TOTAL CARBON DIOXIDE 27.2 MMOL/L (24-32); eGFR > 90 ML/MIN
[2019-03-20 07:05] VITALS: BP 113/51
[2019-03-20] MEDS: haloperidol 5mg tablet PO SCH (08:12)
[2019-03-20] MEDS: ceFAZolin 1GM/D5W- ADD-VANTAGE 50 ML IV SCH (08:12)
[2019-03-20] MEDS: lactobacillus rhamnosus 10,000 MMU CELLS/CAPSULE PO SCH (08:12)
[2019-03-20] MEDS: HYDROcodone/acetaminophen 10/325mg tab PO PRN (08:13)
[2019-03-20] MEDS: enoxaparin 40mg/0.4ml syringe SUBCUT SCH (08:15)
[2019-03-20] MEDS ORDERED: CEPH250T PO (08:35)
[2019-03-20] MEDS ORDERED: HYDR-4383 PO (08:36)
--- NOTE | 2019-03-20 09:44 | NUR ---
All belongings home with patient Addendum: 03/20/19 at 0945 by Nishi Mota RN Amended: Links added.
--- NOTE | 2019-03-20 09:45 | NUR ---
Pateint discharged home with written prescriptions in hand. Patient with crutches. Refused a WC. Assisted to Lobby by staff. Patient to follow up with own PCP. All education completed on discharge. Patient acknowledged verbally teaching.
== END 2019-03-20 09:50 | disposition home or self-care (01) | DRG 383 ==
LOC: ER 12:20 → ED HOLD 16:26 → SUR 3N 20:35
PROVIDERS: ADMIT Internal Medicine; ATTEND Internal Medicine
DX: L03.115 Cellulitis of right lower limb (principal); E43 Unspecified severe protein-calorie malnutrition; F20.9 Schizophrenia, unspecified; F31.9 Bipolar disorder, unspecified; F17.210 Nicotine dependence, cigarettes, uncomplicated; F11.90 Opioid use, unspecified, uncomplicated; F15.90 Other stimulant use, unspecified, uncomplicated; Z79.899 Other long term (current) drug therapy; Z68.26 Body mass index [BMI] 26.0-26.9, adult; Z59.0 Homelessness; Z56.0 Unemployment, unspecified
CPT/HCPCS: 36415; 73564; 80048; 80053; 80305; 81025; 83605; 85025; 87040; 87070; 87081; 96365; 96375; 99285; G0378; J0690; J0696; J1650; J3370

== ENCOUNTER 2019-05-13 12:41 | Emergency (ER) | payer MEDICAID ==
[~2019-05-13] VITALS: Ht 160 cm; Wt 80.0 kg
[~2019-05-13 12:41] MED LIST changes: +ARIP10TA9 PO; +CEPH250T PO; +HALO5TAB PO; +HYDR-4383 PO; -NO HOME MEDS
[2019-05-13 13:11] VITALS: BP 124/73
[2019-05-13] MEDS ORDERED: LIDOcaine 1% w/EPI 1:200,000 injection 10mL vial IM ONE (13:30)
[2019-05-13] MEDS ORDERED: cephalexin 250mg capsule PO ONE (13:30)
[2019-05-13] MEDS ORDERED: sulfamethoxazole/trimethoprim DS (800/160mg) tablet PO ONE (13:30)
[2019-05-13] MEDS ORDERED: LIDOcaine 1% w/epiNEPHrine 1:200,000 30ml vial IM ONE (13:40)
[2019-05-13] MEDS ORDERED: SULF1TAB49 PO (14:18)
[2019-05-13] MEDS ORDERED: IBUP-1984 PO (14:18)
[2019-05-13] MEDS ORDERED: CEPH500C5 PO (14:18)
== END 2019-05-13 14:25 | disposition home or self-care (01) ==
LOC: ER 12:42
DX: L02.413 Cutaneous abscess of right upper limb (principal); L03.113 Cellulitis of right upper limb; F15.90 Other stimulant use, unspecified, uncomplicated; F11.90 Opioid use, unspecified, uncomplicated; F31.9 Bipolar disorder, unspecified; F20.9 Schizophrenia, unspecified; Z59.0 Homelessness; Z56.0 Unemployment, unspecified; Z91.030 Bee allergy status; Z79.899 Other long term (current) drug therapy
CPT/HCPCS: 10060; 87070; 87077; 87186; 99284

== ENCOUNTER 2019-11-16 13:01 | Emergency (ER) | payer MEDICAID, OTHER ==
[~2019-11-16] VITALS: Ht 160 cm; Wt 68.2 kg
[2019-11-16 13:11] VITALS: BP 112/72
[2019-11-16 13:52] LABS: CLARITY,URINE SLIGHTLY CLOUDY (Clear); COLOR,URINE YELLOW (Yellow); GLUCOSE, URINE NEGATIVE (Neg); KETONES,URINE NEGATIVE (Neg); LEUKOCYTE ESTERASE ,URINE NEGATIVE (Neg); NITRITES, URINE NEGATIVE (Neg); OCCULT BLOOD,URINE LARGE (Neg); PH,URINE 5.5 (4.8-8.0); PROTEIN,URINE NEGATIVE (Neg); URINE HCG NEGATIVE (NEG); UROBILINOGEN,URINE 0.2 E.U/dL (0.2-1.0)
[2019-11-16 13:56] LABS: UA COLLECTION TYPE CLN CATCH MIDSTREAM
[2019-11-16 13:57] LABS: MUCUS STRANDS FEW /LPF (Neg); SQUAMOUS EPITHELIAL CELL,UR MODERATE /LPF (FEW)
[2019-11-16 13:58] LABS: BACTERIA,URINE 2+ /HPF (Neg)
[2019-11-16] MEDS ORDERED: CefTRIAXone 250MG IM Kit w/LIDOcaine IM ONE (15:15)
[2019-11-16] MEDS ORDERED: azithromycin 250mg tablet PO ONE (15:15)
[2019-11-16] MEDS ORDERED: CEPH250T PO (15:20)
== END 2019-11-16 15:38 | disposition home or self-care (01) ==
LOC: ER 13:01
DX: N39.0 Urinary tract infection, site not specified (principal); Z11.3 Encounter for screening for infections with a predominantly sexual mode of transmission; F20.9 Schizophrenia, unspecified; F31.9 Bipolar disorder, unspecified; F15.90 Other stimulant use, unspecified, uncomplicated; F11.90 Opioid use, unspecified, uncomplicated; Z59.0 Homelessness; Z56.0 Unemployment, unspecified; Z91.030 Bee allergy status; Z79.899 Other long term (current) drug therapy
CPT/HCPCS: 36415; 81001; 81025; 87077; 87088; 87186; 87491; 87591; 96372; 99283; J0696

== ENCOUNTER 2020-08-23 15:56 | Emergency (ER) | payer MEDICAID, OTHER ==
[~2020-08-23] VITALS: Ht 160 cm; Wt 61.4 kg
[~2020-08-23 15:56] MED LIST changes: -CEPH250T PO; -HALO5TAB PO; -HYDR-4383 PO; +TRAZ-256 PO
[2020-08-23 16:00] VITALS: BP 114/69
== END 2020-08-23 16:08 | disposition home or self-care (01) ==
LOC: ER 15:56
DX: Z00.00 Encounter for general adult medical examination without abnormal findings (principal); F15.90 Other stimulant use, unspecified, uncomplicated; F31.9 Bipolar disorder, unspecified; F20.9 Schizophrenia, unspecified; F11.90 Opioid use, unspecified, uncomplicated; Z59.0 Homelessness; Z56.0 Unemployment, unspecified; Z91.030 Bee allergy status; Z79.899 Other long term (current) drug therapy
CPT/HCPCS: 99281

== ENCOUNTER 2021-09-06 00:49 | Inpatient (IN) | payer MEDICAID, OTHER ==
[~2021-09-06] VITALS: Ht 165.1 cm; Wt 68.0 kg
--- NOTE | 2021-09-06 01:28 | NUR ---
PT WAS FOUND BY SECURITY OFFICERS NEAR THE [employer] IN [place] WHO CALLED EMS, PER WRITTEN 5150. THE PT WAS NOT COOPERATIVE WITH EMS, HAD TO BE TRANSPORTED TO THE HOSPITAL BY [employer] OFFICER. THE PT WAS FOUND NAKED FROM THE WAIST DOWN, HAD DEFECATED AND URINATED ON HERSELF, WAS UNAWARE OF HER SURROUNDINGS, WAS UNABLE TO CARE FOR HER OWN SAFETY, ALSO PER WRITTEN 5150. PT WAS GIVEN BEDBATH AND SHAMIR CARE, CHANGED INTO HOSPITAL GARB. PT HAD FECES ON HER CLOTHING UPON ARRIVAL TO ER.
[2021-09-06] MEDS ORDERED: diphenhydrAMINE 50 mg/ml inj IM ONE (01:30)
[2021-09-06] MEDS ORDERED: LORazepam 2 mg/ml vial IM ONE (01:30)
[2021-09-06] MEDS ORDERED: OLANZapine **IM** 10 mg inj. IM ONE (01:30)
[2021-09-06 01:40] LABS: CLARITY,URINE CLEAR (Clear); COLOR,URINE YELLOW (Yellow); GLUCOSE, URINE NEGATIVE (Neg); KETONES,URINE NEGATIVE (Neg); LEUKOCYTE ESTERASE ,URINE NEGATIVE (Neg); NITRITES, URINE NEGATIVE (Neg); OCCULT BLOOD,URINE NEGATIVE (Neg); PROTEIN,URINE NEGATIVE (Neg); UROBILINOGEN,URINE 0.2 E.U/dL (0.2-1.0)
[2021-09-06 01:47] LABS: UA COLLECTION TYPE OTHER; URINE HCG NEGATIVE (NEG)
[2021-09-06 01:51] LABS: URINE AMPHETAMINE SCREEN POSITIVE (Neg); URINE BARBITUATE SCREEN NEGATIVE (Neg); URINE BENZODIAZEPINES SCREEN NEGATIVE (Neg); URINE CANNABINOID SCREEN POSITIVE (Neg); URINE COCAINE SCREEN NEGATIVE (Neg); URINE METHADONE SCREEN NEGATIVE (Neg); URINE OPIATE SCREEN NEGATIVE (Neg); URINE PHENCYCLIDINE SCREEN NEGATIVE (Neg)
[2021-09-06 01:54] LABS: ALANINE AMINOTRANSFERASE 34 U/L (12-78); ALBUMIN 3.3 G/DL (3.4-5.0); ALBUMIN/GLOBULIN RATIO 0.8 (1.1-1.5); ALKALINE PHOSPHATASE 65 IU/L (46-116); ANION GAP 11 (8-16); ASPARTATE AMINO TRANSFERASE 20 U/L (10-37); BILIRUBIN,TOTAL 0.3 MG/DL (0.1-1.0); BLOOD UREA NITROGEN 25 MG/DL (7-18); CALCIUM 8.8 MG/DL (8.5-10.1); CHLORIDE 105 MMOL/L (99-107); CREATININE 0.61 MG/DL (0.40-0.90); GLUCOSE 116 MG/DL (70-104); POTASSIUM 4.1 MMOL/L (3.5-5.1); SODIUM 143 MMOL/L (135-145); TOTAL CARBON DIOXIDE 27.3 MMOL/L (24-32); TOTAL PROTEIN 7.6 G/DL (6.4-8.2); eGFR > 90 ML/MIN
[2021-09-06 02:04] LABS: ETHANOL < 0.010 GM/DL (0.0-0.010)
[2021-09-06 02:17] LABS: BASOPHILS # (AUTO) 0.1 X10'3 (0-0.2); BASOPHILS % (AUTO) 0.7 % (0-1); EOSINOPHILS # (AUTO) 0.5 X10'3 (0-0.9); EOSINOPHILS % (AUTO) 4.4 % (0-6); HEMATOCRIT 39.7 % (35.0-45.0); HEMOGLOBIN 13.6 g/dl (12.0-16.0); LYMPHOCYTES # (AUTO) 4.7 X10'3 (1.1-4.8); LYMPHOCYTES % (AUTO) 42.8 % (21-51); MEAN CORPUSCULAR HEMOGLOBIN 31.4 PG (27.0-31.0); MEAN CORPUSCULAR HGB CONC 34.3 g/dL (33.0-36.5); MEAN CORPUSCULAR VOLUME 91.6 FL (78-98); MEAN PLATELET VOLUME 8.5 FL (7.4-10.4); MONOCYTES % (AUTO) 9.5 % (2-12); NEUTROPHILS # (AUTO) 4.7 X10'3 (1.8-7.7); NEUTROPHILS % (AUTO) 42.6 % (42-75); PLATELET COUNT 354 X10'3 (140-440); RED BLOOD COUNT 4.34 X10'6 (4.20-5.60); RED CELL DISTRIBUTION WIDTH 14.5 % (11.5-14.5)
--- NOTE | 2021-09-06 09:24 | NUR ---
PATIENT REMAINS ASLEEP IN [facility]. REPORT TO MARKUS HAINES ON ER OVERFLOW. PATIENT HAS NOT EATEN BREAKFAST, SO TRAY WAS TAKEN TO OVERFLOW WITH PATIENT.
--- NOTE | 2021-09-06 10:15 | NUR ---
PT. TRANSFERRED FROM MAIN ER TO OVERFLOW. PT. ESCORTED BY MHT AND SECURITY OFFICERS. PT. PLACED IN BED #25. PT. AAOX 1-2 THIS SHIFT NOTED TO BE RESPONDING TO INTERNAL STIMULI WITH SELF TALK AND INAPPROPRIATE LAUGHTER. STAFF WILL REORIENT NEEDED TO SURROUNDING. PT. SHOWS NO SIGNS OF SELF OR INTENT TO HARM OTHERS AT THIS TIME. STAFF WILL MONITOR FOR SAFETY.
[2021-09-06] MEDS ORDERED: LORazepam 1 MG tablet PO ONE (11:15)
--- NOTE | 2021-09-06 11:19 | NUR ---
PT. VISIBLE ON UNIT SITTING IN BED NOTED TO BE RESPONDING TO INTERNAL STIMULI WITH SELF TALK. PT. ROCKING BACK AND FORTH IN BED. NOTIFIED OB BEHAVIOR . AWAITNG MEDICATION ORDERS.
--- NOTE | 2021-09-06 12:30 | NUR ---
LUNCH TRAY DELIEVERED
--- NOTE | 2021-09-06 13:43 | NUR ---
PT. RESTING QUIETLY WITH EYES CLOSED. EVEN RISE AND FALL OF CHEST NOTED.
--- NOTE | 2021-09-06 18:26 | NUR ---
PT. SITTING UP IN BED EATING DINNER.
--- NOTE | 2021-09-06 20:35 | NUR ---
Pt resting in bed quietly at this time, no distress noted.
[2021-09-06 21:50] VITALS: BP 90/50
--- NOTE | 2021-09-06 21:55 | NUR ---
Pt discharged to [facility] @3724.
[2021-09-06] MEDS ORDERED: magnesium hydroxide 30ml (MOM) UD suspension PO PRN (22:10)
[2021-09-06] MEDS ORDERED: NICOTINE POLACRILEX 2 MG LOZENGE BC PRN (22:10)
[2021-09-06] MEDS ORDERED: loperamide 2mg capsule PO PRN (22:10)
[2021-09-06] MEDS ORDERED: acetaminophen 325mg tablet PO PRN ×2 (22:10)
[2021-09-06] MEDS ORDERED: mag hydrox/Alum hydrox/simeth 30ml oral suspension PO PRN (22:10)
--- NOTE | 2021-09-07 01:27 | NUR ---
GRAB JACK WORKER NOTE: LEGAL HOLD: 5150 for GD REASON FOR ADMISSION: Client was found on a sidewalk without pants/underwear, covered in urine and feces. Client was confused and unable to state what had happened to her. Client is unable to obtain food, detention, and appropriate clothing. THIS SHIFT: Client arrived on the unit at 21:45 in a wheelchair. BROOKE Santoyo and BROOKE Mathews escorted client to unit. Client was somnolent and refused a shower. Client went directly to bed and resisted 2 RN skin assessment. Refused to engage with staff. Client is disheveled, unwashed, and her clothing is soiled. This RN attempted to inspect for lice. None were noted at this time. Client did not make eye contact and became agitated when assessments were attempted. Client requested a snack and was given juice, a sandwich, and chips. Client did not sign consents. Mood is depressed and irritable.
[2021-09-07 08:00] VITALS: BP 130/70
[2021-09-07 08:13] LABS: CHOL/HDL RATIO 2.8 (0.00-4.99); CHOLESTEROL 159 MG/DL (0-200); HDL CHOLESTEROL 56 MG/DL (35-60); LDL CHOLESTEROL 91 MG/DL (50-100); TRIGLYCERIDES 57 MG/DL (20-135)
[2021-09-07 08:26] LABS: HEMOGLOBIN A1C 5.6 % (4.5-6.2)
[2021-09-07] MEDS: nicotine 21mg patch - 24 hr TD SCH (09:27)
--- NOTE | 2021-09-07 15:55 | NUR ---
Nursing Progress Note: Legal hold: 5150 Client on involuntary status for GD Report received from nurse with use of SBAR: Laurie Vang RN Why are they here: Client was found on a sidewalk without pants/underwear, covered in urine and feces. Client was confused and unable to state what had happened to her. Client is unable to obtain food, fdc, and appropriate clothing. Assessment What has happened this shift: Received pt. sleeping in bed at the beginning of the shift, she was awoken by staff to attend breakfast in the Group Room and afterwards returned back to bed. Pt. slept throughout much of the morning and this investigative writer attempted to complete 1:1 later at bedside. Pt. presents as cooperative, fatigued, restless, guarded, and withdrawn. She is A&O X1 to name only, and replies "I don't know to other questions." Pt. then asks this investigative writer when lunch will be served, she appears to perseverate on obtaining food. Pt. denies any S/I, H/I, or A/V/VICENTE and does not appear to be internally preoccupied. No delusional statements were made. However, when this investigative writer questioned pt. regarding any depression or anxiety, she stated, "Maybe a little, I miss my family." Pt. reports her family lives in [place], but she does not know any of their contact information. Pt. was encouraged to shower and was able to do so independently. Superficial scratches are present on both sides of her back, and areas were cleaned and ABT ointment applied. Pictures of these areas along with laceration on pt's left knee were placed in pt's chart. Pt. reports she does not know how any of these injuries occurred and denies any discomfort. Pt. remains withdrawn and naps intermittently throughout the day. S/I, H/I: Denies A/VH: Denies, does not appear to be internally preoccupied Sleep: Sleep hours are 6.75, and pt. naps intermittently throughout the day ADL's: Pt. requires direction and encouragement Group attendance: N/A Were meds taken: Yes Any med S/E: None Mental Status Exam Appearance: Hair and clothing very disheveled and unkempt, however pt. did shower with encouragement Eye contact: Poor Behavior: Cooperative, fatigued, restless, guarded, and withdrawn Speech: Soft and responds minimally to direct questions only Mood: Guarded Affect: Constricted Thought process: Poverty of thought with possible thought blocking Thought Content: Perseveration on obtaining food Cognition: A&O X1 Insight: Poor Judgment: Poor Interventions PRN's used: None Therapeutic interventions: Introduced self and established rapport, maintained a safe and supportive environment, ensured contract for safety, provided clear and simple instructions, attempted to orient to reality, obtained pictures of superficial abrasions on Restraints/seclusion/emergency medication: N/A Justification of Continued Inpatient Treatment: Pt. requires a safe and supportive environment and medication adjustments.
[2021-09-07 19:41] VITALS: BP 126/72
[2021-09-07] MEDS: traZODone 50mg tablet PO SCH (20:42)
[2021-09-07] MEDS: ARIPIPRAZOLE 10 MG TABLET PO SCH (20:43)
--- NOTE | 2021-09-08 05:05 | NUR ---
Nursing Progress Note: Legal hold: 5150 Client on involuntary status for GD Report received from nurse with use of SBAR: MARKUS Madrid Why are they here: Client was found on a sidewalk without pants/underwear, covered in urine and feces. Client was confused and unable to state what had happened to her. Client is unable to obtain food, assisted, and appropriate clothing. Assessment What has happened this shift: Patient laying in bed at the beginning of shift. Pleasant and cooperative with care; compliant with medication. Nicotine patch removed/discarded. Patient denies SI, HI, A/VH. She appeared fatigued and answered with minimal responses. She did not participate in HS snack this shift; observed sleeping and does not appear to be having difficulty. S/I, H/I: Denies A/VH: Denies Sleep: Refer to sleep assessment ADL's: Requires prompting/encouragement Group attendance: NA Were meds taken: Yes Any med S/E: None observed or reported Mental Status Exam Appearance: Disheveled, unkempt hair Eye contact: Poor Behavior: Cooperative, fatigued Speech: Soft and responds minimally to direct questions only Mood: Tired Affect: Constricted Thought process: Poverty of thought with possible thought blocking Thought Content: Unable to assess Cognition: A&O X1 Insight: Poor Judgment: Poor Interventions PRN's used: None Therapeutic interventions: Introduced self and established rapport, maintained a safe and supportive environment, ensured contract for safety, provided clear and simple instructions, attempted to orient to reality, obtained pictures of superficial abrasions on Restraints/seclusion/emergency medication: NA Justification of Continued Inpatient Treatment: Pt. requires a safe and supportive environment and medication adjustments.
--- NOTE | 2021-09-08 06:44 | NUR ---
Patient in room MH 331. I have received report from MARKUS MONTEJO and had the opportunity to ask questions and assume patient care.
[2021-09-08] MEDS: aripiprazole 5mg tablet PO SCH (07:44)
[2021-09-08] MEDS: nicotine 21mg patch - 24 hr TD SCH (07:45)
[2021-09-08 08:00] VITALS: BP 116/63
--- NOTE | 2021-09-08 10:10 | NUR ---
Pt. attended group today. We talked about how we all look at the world differently due to our core beliefs. These core beliefs then inform thoughts and behaviors. Each pt. identified one negative core belief and then wrote out three truths that contradict their negative beliefs to work on thinking differently. Pt. sat quietly in her seat and listened to her peers and this Respiratory Scientist. She did not wish to share her thoughts with the group. Her demeanor was calm and pleasant. MAGALI RazaW
--- NOTE | 2021-09-08 17:10 | NUR ---
Nursing Progress Note: Legal hold:5150 Client on involuntary status for GD Report received from nurse with use of SBAR: Why are they here: Client was found on a sidewalk without pants/underwear, covered in urine and feces. Client was confused and unable to state what had happened to her. Client is unable to obtain food, prison, and appropriate clothing. Assessment What has happened this shift: Received pt. sleeping in bed at the beginning of the shift, she was awoken by staff to attend breakfast in the Group Room and afterwards returned back to bed. Pt. slept throughout much of the morning and this property underwriter completed 1:1 later at bedside. Pt. presents as cooperative, fatigued, restless, guarded, and withdrawn. She is A&O X2, denies thoughts of suicide or interest in harming others. She denies V/A/VICENTE. When asked where she will go upon discharge the patient states I will go live with my brother. No delusional statements were made. After lunch patient requested her brothers phone number and attempted to call him. S/I, H/I: Denies A/VH: Denies Sleep: Patient sleeps intermittently throughout the shift ADL's: Pt. requires direction and encouragement Group attendance: N/A Were meds taken: Yes Any med S/E: None Mental Status Exam Appearance: Hair and clothing very disheveled and unkempt Eye contact: Poor Behavior: Cooperative, fatigued, restless, guarded, and withdrawn Speech: Soft and responds minimally to direct questions only Mood: Guarded Affect: Constricted Thought process: Poverty of thought with possible thought blocking Thought Content: Cognition: A&O X2 Insight: Poor Judgment: Poor Interventions PRN's used: None Therapeutic interventions: Introduced self and established rapport, maintained a safe and supportive environment, ensured contract for safety, provided clear and simple instructions, attempted to orient to reality Restraints/seclusion/emergency medication: N/A Justification of Continued Inpatient Treatment: Pt. requires a safe and supportive environment and medication adjustments.
[2021-09-08 20:00] VITALS: BP 119/66
[2021-09-08] MEDS: traZODone 50mg tablet PO SCH (20:17)
[2021-09-08] MEDS: ARIPIPRAZOLE 10 MG TABLET PO SCH (20:17)
--- NOTE | 2021-09-09 01:53 | NUR ---
Nursing Progress Note: Elvia Legal hold: 5150 Client on involuntary status for GD Report received from nurse with use of SBAR: Why are they here: Client was found on a sidewalk without pants/underwear, covered in urine and feces. Client was confused and unable to state what had happened to her. Client is unable to obtain food, custodial, and appropriate clothing. Assessment What has happened this shift: Received pt. lying in bed resting, pt cooperative with care. Denies MH symptoms and describes her mood as tired but awake. Pt. requested shower this evening. Pt up for snacks and took all HS medications without issue. Observed pt watching TV in community room for a while before bedtime. No complaints at this time, continue to monitor. S/I, H/I: Denies A/VH: Denies Sleep: ADL's: Pt. requires direction and encouragement Group attendance: N/A Were meds taken: Yes Any med S/E: None Mental Status Exam Appearance: Showered this evening, clean scrubs on, hair washed Eye contact: Poor Behavior: Cooperative, fatigued, restless, and withdrawn Speech: Soft and responds minimally to direct questions only Mood: Guarded Affect: Constricted Thought process: Poverty of thought with possible thought blocking Thought Content: Cognition: A&O X2 Insight: Poor Judgment: Poor Interventions PRN's used: None Therapeutic interventions: Introduced self and established rapport, maintained a safe and supportive environment, ensured contract for safety, provided clear and simple instructions, attempted to orient to reality Restraints/seclusion/emergency medication: N/A Justification of Continued Inpatient Treatment: Pt. requires a safe and supportive environment and medication adjustments.
[2021-09-09] MEDS: aripiprazole 5mg tablet PO SCH (08:19)
[2021-09-09] MEDS: nicotine 21mg patch - 24 hr TD SCH (08:20)
[2021-09-09 08:53] VITALS: BP 131/77
[2021-09-09] MEDS ORDERED: ARIP10TA57 PO (15:40)
[2021-09-09] MEDS ORDERED: TRAZ-256 PO (15:40)
[2021-09-09] MEDS ORDERED: ARIP10TA15 PO (15:40)
[2021-09-09] MEDS ORDERED: NICO-907 BC (15:40)
[2021-09-09] MEDS ORDERED: NICO-687 TD (15:40)
--- NOTE | 2021-09-09 16:51 | NUR ---
Discharge Note: Paperwork and follow up reviewed with the patient including smoking cessation information. Patient is agreeable to discharge. Prescriptions sent to [facility] as patients pharmacy of choice. Escorted off the unit by staff with all of her belongings at 16:45 and is picked up by the county carrier driver. Discharged with the following instructions: Follow-Up: Patient has been scheduled/referred to the following providers for post-hospital discharge and aftercare treatment. Psychiatrist: You are scheduled for an intake appointment at [facility] on 09/11 at 10:00AM. You will be scheduled for a medication appointment after completing the intake. Primary Care Provider: You are encouraged to walk-in at [facility] to complete a new patient intake paperwork to establish primary care services. Discharge Address: Brother's home [address] [place] [id number] Transportation: [employer] carrier driver to worm picker between 4:30 and 5:pm Patient given community crisis services information and National suicide hotline handout. Please call [phone] for your second outpatient smoking cessation appointment. Resources for education regarding mental illness: [address] [address] For urgent mental health crisis needs please contact Mobile Crisis Outreach Team Wednesday through Wednesday 8:30a to 5:00pm. [facility] Crisis Outreach Team [address] [place] [phone]
== END 2021-09-09 16:42 | disposition home or self-care (01) | DRG 750 ==
LOC: ER 00:49 → ED HOLD 15:00 → EEVIPCON 15:00 → ADULT MH 22:06
PROVIDERS: ADMIT Psychiatry & Neurology Psychiatry; ATTEND Psychiatry & Neurology Psychiatry
DX: F25.1 Schizoaffective disorder, depressive type (principal); Z59.00 Homelessness unspecified; F12.90 Cannabis use, unspecified, uncomplicated; Z91.14 Patient's other noncompliance with medication regimen; Z20.822 Contact with and (suspected) exposure to COVID-19; R45.84 Anhedonia; F15.10 Other stimulant abuse, uncomplicated; F17.210 Nicotine dependence, cigarettes, uncomplicated; Z91.19 Patient's noncompliance with other medical treatment and regimen; F32.A Depression, unspecified; F41.9 Anxiety disorder, unspecified; G43.909 Migraine, unspecified, not intractable, without status migrainosus; Z56.0 Unemployment, unspecified; Z91.52 Personal history of nonsuicidal self-harm; Z91.030 Bee allergy status; Z71.6 Tobacco abuse counseling
CPT/HCPCS: 36415; 80053; 80061; 80305; 80320; 81003; 81025; 83036; 84443; 85025; 87081; 87635; 99285; C9803

== ENCOUNTER 2021-11-13 22:48 | Inpatient (IN) | payer MEDICAID ==
[~2021-11-13] VITALS: Ht 160 cm; Wt 72.7 kg
[~2021-11-13 22:48] MED LIST changes: +ARIP10TA15 PO; +ARIP10TA57 PO; -ARIP10TA9 PO; +NICO-687 TD; +NICO-907 BC
--- NOTE | 2021-11-14 | NUR ---
covis swab sent to lab
[2021-11-14 00:32] LABS: BASOPHILS % (AUTO) 0.3 % (0-1); EOSINOPHILS # (AUTO) 0.3 X10'3 (0-0.9); EOSINOPHILS % (AUTO) 2.3 % (0-6); HEMATOCRIT 37.2 % (35.0-45.0); LYMPHOCYTES # (AUTO) 5.7 X10'3 (1.1-4.8); MEAN CORPUSCULAR HEMOGLOBIN 32.5 PG (27.0-31.0); MEAN CORPUSCULAR HGB CONC 35.1 g/dL (33.0-36.5); MEAN CORPUSCULAR VOLUME 92.6 FL (78-98); MEAN PLATELET VOLUME 8.1 FL (7.4-10.4); MONOCYTES # (AUTO) 1.1 X10'3 (0-0.9); MONOCYTES % (AUTO) 9.2 % (2-12); NEUTROPHILS # (AUTO) 4.8 X10'3 (1.8-7.7); NEUTROPHILS % (AUTO) 40.2 % (42-75); PLATELET COUNT 323 X10'3 (140-440); RED BLOOD COUNT 4.02 X10'6 (4.20-5.60); RED CELL DISTRIBUTION WIDTH 12.9 % (11.5-14.5); WHITE BLOOD COUNT 11.8 X10'3 (4.5-11.0)
[2021-11-14] MEDS ORDERED: vancomycin inj 1,000 MG in normal saline 250ml IV soln 250 ML IV ONE (00:35)
[2021-11-14] MEDS ORDERED: vancomycin/NS 1 GM ADD-VANTAGE 250 ML IV ONE (00:35)
[2021-11-14 00:44] LABS: ALANINE AMINOTRANSFERASE 18 U/L (12-78); ALBUMIN 3.5 G/DL (3.4-5.0); ALBUMIN/GLOBULIN RATIO 0.8 (1.1-1.5); ALKALINE PHOSPHATASE 70 IU/L (46-116); ANION GAP 10 (8-16); ASPARTATE AMINO TRANSFERASE 16 U/L (10-37); BILIRUBIN,TOTAL 0.2 MG/DL (0.1-1.0); BLOOD UREA NITROGEN 12 MG/DL (7-18); BUN/CREATININE RATIO 16.9 (6.6-38.0); CALCIUM 8.8 MG/DL (8.5-10.1); CHLORIDE 101 MMOL/L (99-107); CREATININE 0.71 MG/DL (0.40-0.90); GLUCOSE 92 MG/DL (70-104); POTASSIUM 3.6 MMOL/L (3.5-5.1); SODIUM 139 MMOL/L (135-145); TOTAL PROTEIN 7.9 G/DL (6.4-8.2); eGFR > 90 ML/MIN
[2021-11-14] MEDS ORDERED: mag hydrox/Alum hydrox/simeth 30ml oral suspension PO PRN (01:25)
[2021-11-14] MEDS ORDERED: magnesium hydroxide 30ml (MOM) UD suspension PO PRN (01:25)
[2021-11-14] MEDS ORDERED: acetaminophen 325mg tablet PO PRN (01:25)
[2021-11-14] MEDS ORDERED: HYDROcodone/acetaminophen 5mg/325mg tablet PO PRN (01:25)
[2021-11-14] MEDS: normal saline 1000ml 1,000 ML IV SCH ×3 (01:43→21:25)
[2021-11-14] MEDS: clindamycin 600mg/D5W 50ml 50 ML IV SCH ×2 (02:21→08:15)
--- NOTE | 2021-11-14 06:49 | NUR ---
Pt sleeping, no apparent distress or needs at this time.
[2021-11-14] MEDS: heparin, porcine 5000 units/ml vial SQ SCH ×2 (08:38→22:53)
[2021-11-14] MEDS: docusate sod 100mg capsule PO SCH ×2 (08:38→22:52)
--- NOTE | 2021-11-14 08:40 | NUR ---
Pt vinicio, states her hand "hurts a little." No further needs at this time.
--- NOTE | 2021-11-14 10:10 | NUR ---
Pt sleeping, no apparent distress or needs at this time. MD in to see pt about an hour ago, pt still groggy.
--- NOTE | 2021-11-14 11:11 | NUR ---
Pt awake, ambulated to bathroom for UA. Stable on feet, no complaints.
[2021-11-14 11:39] LABS: URINE HCG NEGATIVE (NEG)
[2021-11-14 11:40] LABS: CLARITY,URINE CLEAR (Clear); COLOR,URINE YELLOW (Yellow); GLUCOSE, URINE NEGATIVE (Neg); KETONES,URINE NEGATIVE (Neg); LEUKOCYTE ESTERASE ,URINE NEGATIVE (Neg); NITRITES, URINE NEGATIVE (Neg); OCCULT BLOOD,URINE NEGATIVE (Neg); PH,URINE 6.5 (4.8-8.0); PROTEIN,URINE NEGATIVE (Neg); UROBILINOGEN,URINE 0.2 E.U/dL (0.2-1.0)
[2021-11-14 11:43] LABS: UA COLLECTION TYPE NON-SPECIFIED
--- NOTE | 2021-11-14 11:51 | NUR ---
Pharmacy called for vancomycin- incorrect pyxis count
[2021-11-14 12:02] LABS: URINE AMPHETAMINE SCREEN POSITIVE (Neg); URINE BARBITUATE SCREEN NEGATIVE (Neg); URINE BENZODIAZEPINES SCREEN NEGATIVE (Neg); URINE CANNABINOID SCREEN POSITIVE (Neg); URINE COCAINE SCREEN NEGATIVE (Neg); URINE METHADONE SCREEN NEGATIVE (Neg); URINE OPIATE SCREEN NEGATIVE (Neg); URINE PHENCYCLIDINE SCREEN NEGATIVE (Neg)
[2021-11-14] MEDS: vancomycin/NS 1 GM ADD-VANTAGE 250 ML IV SCH ×2 (12:13→22:52)
--- NOTE | 2021-11-14 12:30 | NUR ---
Pt sleeping, no apparent distress.
[2021-11-14] MEDS ORDERED: NO HOME MEDS (14:38)
--- NOTE | 2021-11-14 14:59 | NUR ---
Pt still asleep, no needs at this time.
--- NOTE | 2021-11-14 16:55 | NUR ---
Pt sleeping, no apparent distress or needs.
[2021-11-14 22:00] VITALS: BP 87/65
--- NOTE | 2021-11-15 01:32 | NUR ---
attempted to dart the pt and ask her admission questions but the pt is unable to stay awake and asks to return to sleep. will attempt later. will continue to monitor.
[2021-11-15 06:00] VITALS: BP 115/44
--- NOTE | 2021-11-15 06:30 | NUR ---
Patient in room ORTHO 4014. I have received report from Shana and had the opportunity to ask questions and assume patient care.
--- NOTE | 2021-11-15 06:31 | NUR ---
Problems reprioritized. Patient report given, questions answered & plan of care reviewed with Jessica APARICIO.
[2021-11-15 07:09] LABS: BASOPHILS % (AUTO) 0.5 % (0-1); EOSINOPHILS # (AUTO) 0.2 X10'3 (0-0.9); EOSINOPHILS % (AUTO) 2.3 % (0-6); HEMATOCRIT 36.4 % (35.0-45.0); HEMOGLOBIN 12.2 g/dl (12.0-16.0); LYMPHOCYTES # (AUTO) 3.8 X10'3 (1.1-4.8); LYMPHOCYTES % (AUTO) 47.1 % (21-51); MEAN CORPUSCULAR HGB CONC 33.5 g/dL (33.0-36.5); MEAN CORPUSCULAR VOLUME 92.4 FL (78-98); MEAN PLATELET VOLUME 8.6 FL (7.4-10.4); MONOCYTES # (AUTO) 0.6 X10'3 (0-0.9); MONOCYTES % (AUTO) 7.9 % (2-12); NEUTROPHILS # (AUTO) 3.4 X10'3 (1.8-7.7); NEUTROPHILS % (AUTO) 42.2 % (42-75); PLATELET COUNT 272 X10'3 (140-440); RED BLOOD COUNT 3.94 X10'6 (4.20-5.60); RED CELL DISTRIBUTION WIDTH 12.9 % (11.5-14.5)
[2021-11-15 07:27] LABS: ALANINE AMINOTRANSFERASE 16 U/L (12-78); ALBUMIN 2.6 G/DL (3.4-5.0); ALBUMIN/GLOBULIN RATIO 0.7 (1.1-1.5); ALKALINE PHOSPHATASE 55 IU/L (46-116); ANION GAP 6 (8-16); ASPARTATE AMINO TRANSFERASE 15 U/L (10-37); BILIRUBIN,TOTAL 0.3 MG/DL (0.1-1.0); BLOOD UREA NITROGEN 9 MG/DL (7-18); BUN/CREATININE RATIO 15.8 (6.6-38.0); CHLORIDE 110 MMOL/L (99-107); CREATININE 0.57 MG/DL (0.40-0.90); GLUCOSE 96 MG/DL (70-104); POTASSIUM 4.3 MMOL/L (3.5-5.1); SODIUM 141 MMOL/L (135-145); TOTAL CARBON DIOXIDE 24.8 MMOL/L (24-32); TOTAL PROTEIN 6.3 G/DL (6.4-8.2); eGFR > 90 ML/MIN
[2021-11-15] MEDS: normal saline 1000ml 1,000 ML IV SCH (09:59)
[2021-11-15] MEDS: docusate sod 100mg capsule PO SCH (09:59)
[2021-11-15 10:00] VITALS: BP 95/57
[2021-11-15] MEDS: heparin, porcine 5000 units/ml vial SQ SCH (10:00)
[2021-11-15] MEDS: vancomycin/NS 1 GM ADD-VANTAGE 250 ML IV SCH (10:48)
[2021-11-15] MEDS ORDERED: AMOX-580 PO (11:31)
[2021-11-15] MEDS ORDERED: SULF1TAB49 PO (11:31)
--- NOTE | 2021-11-15 13:02 | NUR ---
Discharged pt, reviewed discharge instructions with pt, walked to elevator/out of building on her own. Pt indicates she is fine and is ok to discharge outside.
[2021-11-15] MEDS ORDERED: VANCOMYCIN LEVEL IV ONE (19:30)
== END 2021-11-15 13:02 | disposition home or self-care (01) | DRG 383 ==
LOC: ER 22:48 → ED HOLD 11-14 01:26 → ORTHO 4S 11-14 22:30
PROVIDERS: ADMIT Internal Medicine; ATTEND Internal Medicine
PROC: 0HCGXZZ Extirpation of Matter from Left Hand Skin, External Approach (ICD-10-PCS; principal; 2021-11-13)
DX: L03.012 Cellulitis of left finger (principal); F11.90 Opioid use, unspecified, uncomplicated; Z20.822 Contact with and (suspected) exposure to COVID-19; F20.9 Schizophrenia, unspecified; W49.04XA Ring or other jewelry causing external constriction, initial encounter; F15.90 Other stimulant use, unspecified, uncomplicated; F17.200 Nicotine dependence, unspecified, uncomplicated; Z56.0 Unemployment, unspecified; Z59.00 Homelessness unspecified; Z91.030 Bee allergy status; Z87.01 Personal history of pneumonia (recurrent); Z79.899 Other long term (current) drug therapy; Z71.51 Drug abuse counseling and surveillance of drug abuser
CPT/HCPCS: 36415; 71045; 73130; 80053; 80305; 81003; 81025; 83605; 84145; 85025; 87040; 87081; 87635; 96365; 99285; C9803; G0378; J1644; J3370; J3490; J7030

== ENCOUNTER 2022-09-07 19:30 | Emergency (ER) | payer MEDICAID ==
[~2022-09-07] VITALS: Ht 160 cm; Wt 73.0 kg
[2022-09-07 19:38] VITALS: BP 137/91
[2022-09-07] MEDS ORDERED: sulfamethoxazole/trimethoprim DS (800/160mg) tablet PO ONE (19:40)
[2022-09-07] MEDS ORDERED: SULF1TAB45 PO (19:42)
[2022-09-07] MEDS ORDERED: CEPH250T PO (19:42)
== END 2022-09-07 20:20 ==
LOC: ER 19:31
DX: F15.959 Other stimulant use, unspecified with stimulant-induced psychotic disorder, unspecified (principal); F31.9 Bipolar disorder, unspecified; F20.9 Schizophrenia, unspecified; Z56.0 Unemployment, unspecified; Z59.00 Homelessness unspecified; Z91.030 Bee allergy status; Z79.899 Other long term (current) drug therapy
CPT/HCPCS: 99283